=== PATIENT | female | born 1950 | race American Indian/Alaskan Native ===

== ENCOUNTER 2020-08-19 11:29 | Emergency (ER) | payer MEDICARE ==
--- NOTE | 2020-08-19 11:36 | Emergency Department Report ---
Blank Doc - Documentation Documentation: This is a 70-year-old female that was brought by her daughter for hallucinatio ns. Daughter stated has not been taking her psych medications. This initial assessment/diagnostic orders/clinical plan/treatment(s) is/are subject to change based on patient's health status, clinical progression and re- assessment by fellow clinical providers in the ED. Further treatment and workup at subsequent clinical providers discretion. Patient/guardians urged not to elope from the ED as their condition may be serious if not clinically assessed and managed. Initial orders include: 1- Patient sent to MAIN ED for further evaluation and treatment 2- iron handler was notified to have patient be brought back [facility]. 3- RN was notified to keep patient as close range and observation until room available
[2020-08-19 12:20] LABS: Basophils # (Auto) 0.1 K/mm3 (0.0-0.1); Basophils % (Auto) 0.6 % (0.0-1.8); Eosinophils # (Auto) 0.1 K/mm3 (0.0-0.4); Eosinophils % (Auto) 0.7 % (0.0-4.3); Hematocrit 38.1 % (30.3-42.9); Hemoglobin 11.8 gm/dl (10.1-14.3); Lymphocytes # (Auto) 2.1 K/mm3 (1.2-5.4); Lymphocytes % (Auto) 22.2 % (13.4-35.0); Mean Corpuscular HGB Conc 31 % (30-34); Monocytes # (Auto) 0.5 K/mm3 (0.0-0.8); Monocytes % (Auto) 4.9 % (0.0-7.3); Platelet Count 294 K/mm3 (140-440); Red Blood Count 5.48 M/mm3 (3.65-5.03); Red Cell Distribution Width 16.2 % (13.2-15.2)
[2020-08-19 12:30] LABS: Mean Corpuscular Volume 70 fl (79-97)
[2020-08-19 12:34] LABS: BUN/Creatinine Ratio 18; Blood Urea Nitrogen 18 mg/dL (7-17); Calcium 9.5 mg/dL (8.4-10.2); Hemolysis Index 10
[2020-08-20] MEDS ORDERED: INSULIN REGULAR, HUMAN 100 UNITS/1 ML ONE ×3 (02:00→02:30)
[2020-08-20] MEDS ORDERED: SODIUM CHLORIDE 0.9% 1000 ML 1,000 ML ONE (02:21)
[2020-08-20] MEDS ORDERED: INSULIN REGULAR, HUMAN 100 UNIT/ML 3ML VIAL ONE (02:23)
[2020-08-20] MEDS ORDERED: SODIUM CHLORIDE 0.9% 1000 ML IV SOLN ONE (02:30)
[2020-08-20] MEDS ORDERED: SODIUM CHLORIDE 0.9% 1000 ML 1,000 ML IV ONE (22:37)
[2020-08-20] MEDS ORDERED: INSULIN REGULAR, HUMAN 100 UNIT/ML 3ML VIAL IV ONE (22:38)
[2020-08-21] MEDS ORDERED: INSULIN REGULAR, HUMAN 100 UNITS/1 ML ONE ×4 (00:01)
[2020-08-21 11:28] LABS: Color,Urine STRAW (Yellow)
[2020-08-21 11:29] LABS: Bilirubin,Urine Negative (Negative); Blood,Urine Negative (Negative)
[2020-08-21 11:30] LABS: Mucus,Urine FEW /HPF
[2020-08-21 11:42] LABS: Urobilinogen,Urine < 0.2 mg/dL (<2.0)
[2020-08-21] MEDS ORDERED: INSULIN REGULAR, HUMAN 100 UNIT/ML 3ML VIAL SUB-Q ONE ×2 (12:18→17:03)
--- NOTE | 2020-08-21 12:35 | Consultation ---
History of Present Illness - Reason for Consult Consult date: 08/21/20 Reason for consult: hallucinations - History of Present Psychiatric Illness Shalini Florez is a 70y/o female patient who was brought in by her daughter for noncompliance with medications and hallucinations, per documentation. During my interview with the patient she is sitting on side of the bed, she appears to be praying. She is a/o x 2. She say she was brought to the hospital "because I was praying and speaking in my language." When asking the patient what was her language, she says "the Spirit of God." When asked why was she not taking her medications she replies "I don't take meds." She then says "they gave me hallucinations." The patient denies SI/HHI or hallucinations of any kind. SHe says she has a history of depression. PAST PSYCHIATRIC HISTORY: Diagnoses: Depression Suicide attempts or Self-harm behavior: Denies Prior psychiatric hospitalizations: Denies Substance Abuse history: Denies Previous psychiatric medications tried: Could not recall Outpatient treatment: "at one point" PAST MEDICAL HISTORY: None reported Family Psychiatric History: None reported or documented SOCIAL HISTORY Marital Status: Living Arrangements: with family Employment Status: Retired Education: History of Abuse: None reported Legal History: None reported REVIEW OF SYSTEMS Constitutional: Negative for weight loss ENT: Negative for stridor Respiratory: Negative for cough or hemoptysis All other systems reviewed and are negative MENTAL STATUS EXAMINATION General Appearance: Dressed appropriately Behavior: good eye contact, calm and cooperative Cooperation: Participating/engaged Psychomotor Behavior: Psychomotor normal Mood: "fine" Affect and affective range: Flat Thought Process: goal oriented Thought Content: illogical Speech: Normal rate, volume and rhythm Suicidal Ideation: denies SI Homicidal Ideation: Denies HI Hallucinations: Denies Delusions: None elicited Impulse Control: unimpaired Insight and Judgment: Limited insight and judgment Memory: Normal Attention: Normal Orientation: Alert, oriented Assessment and Plan (1) Paranoid Schizophrenia (2) Noncompliance with medical regimen and other treatment TREATMENT Scripts: Continue Invega 6mg po daily Start Trazodone 50mg po qhs Sitter: Per primary Medical: Per primary Disposition: recommend acute inpatient psychiatric treatment. Will continue to follow. Thank you for this consult. Medications and Allergies Allergies Allergy/AdvReac Type Severity Reaction Status Date / Time No Known Allergies Allergy Verified 05/18/20 22:04 Home Medications Medication Instructions Recorded Confirmed Last Taken Type Metformin HCl [metFORMIN] 1 tab PO DAILY 05/19/20 08/20/20 Unknown History Paliperidone [Invega] 1 cap PO QAM 05/19/20 08/20/20 Unknown History Acetaminophen [Acetaminophen TAB] 650 mg PO Q4H PRN tablet 05/21/20 08/20/20 Unknown Rx Lispro Insulin [HumaLOG] 0 unit SUB-Q Q6HR units 05/21/20 08/20/20 Unknown Rx metFORMIN [Glucophage] 500 mg PO BIDDIAB tablet 05/21/20 08/20/20 Unknown Rx Active Meds: Active Medications Metformin HCl (Glucophage) 1,000 mg PO BIDDIAB [facility] Mental Status Exam - Vital signs Last Vital Signs Temp 98.5 F 08/21/20 07:39 Pulse 80 08/21/20 07:39 Resp 18 08/21/20 07:39 BP 140/70 08/21/20 07:39 Pulse Ox 100 08/21/20 07:39 Results Result Diagrams: 08/19/20 11:49 08/19/20 11:49 Abnormal lab results 08/20/20 08/20/20 08/20/20 Range/Units 02:43 04:12 22:52 POC Glucose 478 H 220 H 448 H (70-105) mg/dL 08/21/20 08/21/20 08/21/20 Range/Units 00:59 10:09 12:17 POC Glucose 202 H 439 H 454 H (70-105) mg/dL All other labs normal.
[2020-08-21] MEDS ORDERED: ZIPRASIDONE MESYLATE 20 MG VIAL IM PRN (13:37)
[2020-08-21] MEDS: metFORMIN 500 MG TAB PO SCH (17:12)
[2020-08-21] MEDS ORDERED: INSULIN REGULAR, HUMAN 100 UNIT/ML 3ML VIAL IV ONE (21:48)
[2020-08-21] MEDS ORDERED: traZODone 50 MG TAB PO SCH (22:00)
[2020-08-22] MEDS: metFORMIN 500 MG TAB PO SCH ×2 (07:33→16:41)
--- NOTE | 2020-08-22 09:24 | Progress Note ---
Subjective - Reason for Consult Consult date: 08/22/20 Reason for consult: psychosis - Chief Complaint Chief complaint: During my interview with the patient, she lying down staring at the ceiling. She is a/o x 2. She denies hallucinations, despite hearing her talk out loud as I am entering the room. When asking the patient who was she talking to, she replied "the Spirit of the Lord." The patient made no eye contact at all. She denies SI/HI. She describes her mood as "well." REVIEW OF SYSTEMS Constitutional: Negative for weight loss ENT: Negative for stridor Respiratory: Negative for cough or hemoptysis All other systems reviewed and are negative MENTAL STATUS EXAMINATION General Appearance: Dressed appropriately Behavior: poor eye contact, calm and cooperative Cooperation: Participating/engaged Psychomotor Behavior: Psychomotor normal Mood: "well" Affect and affective range: Flat Thought Process: goal oriented Thought Content: illogical Speech: Normal rate, volume and rhythm Suicidal Ideation: denies SI Homicidal Ideation: Denies HI Hallucinations: Denies, but heard talking out lout Delusions: None elicited Impulse Control: Limited Insight and Judgment: Limited insight and judgment Memory/Cognition: Limited Orientation: Alert, oriented Assessment and Plan (1) Paranoid Schizophrenia (2) Noncompliance with medical regimen and other treatment TREATMENT Scripts: Start Klonopin 0.5mg po daily Sitter: Per primary Medical: Per primary Disposition: recommend acute inpatient psychiatric treatment. Will continue to follow. Thank you for this consult. Mental Status Exam - Vital signs Last Vital Signs Temp 98.0 F 08/22/20 08:15 Pulse 67 08/22/20 08:15 Resp 18 08/22/20 08:15 BP 121/56 08/22/20 08:15 Pulse Ox 100 08/22/20 08:15
[2020-08-22] MEDS ORDERED: PALIPERIDONE PO SCH (10:00)
[2020-08-22] MEDS ORDERED: PALIPERIDONE ER 3 MG TAB PO SCH (10:00)
[2020-08-22] MEDS ORDERED: clonazePAM 0.5 MG TAB PO SCH (10:00)
[2020-08-22 12:31] LABS: Amphetamine Screen,Urine PRESUMPTIVE NEGATIVE; Benzodiazepines Screen,Urine PRESUMPTIVE NEGATIVE; Cannabinoid Screen,Urine PRESUMPTIVE NEGATIVE; Cocaine Screen,Urine PRESUMPTIVE NEGATIVE; Methadone Screen,Urine PRESUMPTIVE NEGATIVE; Opiate Screen,Urine PRESUMPTIVE NEGATIVE
[2020-08-22 12:35] LABS: BUN/Creatinine Ratio 16; Blood Urea Nitrogen 16 mg/dL (7-17)
[2020-08-22 12:36] LABS: Calcium 9.7 mg/dL (8.4-10.2)
[2020-08-22] MEDS ORDERED: INSULIN REGULAR, HUMAN 100 UNIT/ML 3ML VIAL IV ONE ×2 (14:36→16:07)
[2020-08-22 15:21] VITALS: BP 120/61
[2020-08-22] MEDS ORDERED: SODIUM CHLORIDE 0.9% 1000 ML 1,000 ML IV ONE (16:07)
[2020-08-22] MEDS ORDERED: INSULIN REGULAR, HUMAN 100 UNITS/1 ML ONE (16:17)
[2020-08-22 17:47] LABS: Calcium 8.9 mg/dL (8.4-10.2)
--- NOTE | 2020-08-22 17:59 | Emergency Department Report ---
Blank Doc - Documentation Documentation: Patient in the ED with several days awaiting placement to psychiatric facility. Patient did have several episodes of hypoglycemia in the ED that responded to insulin boluses. She does not have signs of DKA. Patient is medically cleared brownish provided and repeat labs reveal improved glucose with stable electrolytes. Patient be discharged so that she may be admitted to [facility] psych
== END 2020-08-22 18:25 ==
LOC: ED 11:29
DX: F20.0 Paranoid schizophrenia (principal); Z20.828 Contact with and (suspected) exposure to other viral communicable diseases
CPT/HCPCS: 36415; 80048; 80307; 81001; 82962; 85025; 96361; 96374; 96376; 99284; J7030; U0003; 80320; 96372; G0480; J1815

== ENCOUNTER 2021-04-28 09:25 | Emergency (ER) | payer MEDICARE ==
[2021-04-28] MEDS ORDERED: SODIUM CHLORIDE 0.9% 1000 ML 1,000 ML IV ONE (11:32)
--- NOTE | 2021-04-28 11:37 | Emergency Department Report ---
HPI - General Chief Complaint: Hyperglycemia Time Seen by Provider: 04/28/21 11:25 - HPI HPI: Room 23 The patient is a 70-year-old female present with a chief complaint of hyperglycemia. The patient states she came to the emergency department because this morning she noticed that her blood sugar was elevated at 491. The patient states that when she awakened this morning she felt like her normal self however when she got out of bed she began to feel dizzy which prompted her to sit back down. Patient states the dizziness lasted for 5 minutes and then resolved. The patient decided to check her blood sugar and this when she was found to be hypo glycemic. Patient states she has been compliant with her diabetes medication. Patient denies nausea/vomiting, fever or any preceding trauma. Patient admits to urinary frequency which began today. When asked how she is feeling currently the patient replies "I feel good." ED Past Medical Hx - Past Medical History Previous Medical History?: Yes Hx Hypertension: Yes Hx Diabetes: Yes Hx Psychiatric Treatment: Yes (depression, states she takes Invega) - Surgical History Additional Surgical History: Bilateral tubal ligation - Family History Family history: no significant - Social History Smoking Status: Never Smoker Substance Use Type: None (Denies illicit drug use) - Medications Home Medications: Home Medications Medication Instructions Recorded Confirmed Last Taken Type Paliperidone [Invega] 1 cap PO QAM 05/19/20 08/22/20 Unknown History Acetaminophen [Acetaminophen TAB] 650 mg PO Q4H PRN tablet 05/21/20 08/22/20 Unknown Rx Lispro Insulin [HumaLOG] 0 unit SUB-Q Q6HR units 05/21/20 08/22/20 Unknown Rx metFORMIN [Glucophage] 500 mg PO BIDDIAB tablet 05/21/20 08/22/20 Unknown Rx Paliperidone [Invega] 6 mg PO QDAY #30 tablet 08/29/20 Unknown Rx ED Review of Systems ROS: Stated complaint: FELL, DIZZY ,SUGAR HIGH Other details as noted in HPI Constitutional: denies: fever Eyes: denies: eye pain ENT: denies: throat pain Respiratory: no symptoms reported Cardiovascular: denies: chest pain Endocrine: no symptoms reported Gastrointestinal: denies: nausea, vomiting Genitourinary: frequency Musculoskeletal: denies: back pain Neurological: other (Dizziness). denies: headache Physical Exam - Physical Exam Vital Signs: Vital Signs 04/28/21 10:00 Temperature 98.3 F Pulse Rate 111 H Respiratory 18 Rate Blood Pressure 157/67 [Right] O2 Sat by Pulse 99 Oximetry Physical Exam: GENERAL: The patient is well-developed well-nourished female lying on stretcher not appearing to be in acute distress. [] HEENT: Normocephalic. Atraumatic. Extraocular motions are intact. Patient has moist mucous membranes. NECK: Supple. Trachea midline CHEST/LUNGS: Clear to auscultation. There is no respiratory distress noted. HEART/CARDIOVASCULAR: Regular. There is tachycardia. There is no gallop rub or murmur. ABDOMEN: Abdomen is soft, nontender. Patient has normal bowel sounds. There is no abdominal distention. SKIN: There is no rash. There is no edema. There is no diaphoresis. NEURO: The patient is awake, alert, and oriented. The patient is cooperative. The patient has no focal neurologic deficits. The patient has normal speech. Cranial nerves II through XII grossly intact. GCS 15 MUSCULOSKELETAL:There is no evidence of acute injury. ED Course Vital Signs 04/28/21 10:00 Temperature 98.3 F Pulse Rate 111 H Respiratory 18 Rate Blood Pressure 157/67 [Right] O2 Sat by Pulse 99 Oximetry ED Medical Decision Making - Lab Data Result diagrams: 04/28/21 11:23 04/28/21 11:23 Laboratory Tests 04/28/21 04/28/21 04/28/21 09:59 11:23 11:23 WBC 11.0 RBC 5.23 H Hgb 11.1 Hct 35.7 MCV 68 L MCH 21 L MCHC 31 RDW 16.4 H Plt Count 249 Lymph % (Auto) 16.2 [place] % (Auto) 5.2 Eos % (Auto) 0.1 Baso % (Auto) 0.4 Lymph # (Auto) 1.8 [place] # (Auto) 0.6 Eos # (Auto) 0.0 Baso # (Auto) 0.0 Seg Neutrophils % 78.1 H Seg Neutrophils # 8.6 H VBG pH Sodium 133 L Potassium 4.5 Chloride 92.2 L Carbon Dioxide 27 Anion Gap 18 BUN 17 Creatinine 0.9 Estimated GFR > 60 BUN/Creatinine Ratio 19 Glucose 404 H POC Glucose 491 H Calcium 10.0 Magnesium 1.50 L Total Bilirubin 0.20 AST 11 ALT 5 L Alkaline Phosphatase 107 Total Creatine Kinase 108 Troponin T Total Protein 7.3 Albumin 4.5 Albumin/Globulin Ratio 1.6 Urine Color Urine Turbidity Urine pH Ur Specific [place] Urine Protein Urine Glucose (UA) Urine Ketones Urine Blood Urine Nitrite Urine Bilirubin Urine Urobilinogen Ur Leukocyte Esterase Urine WBC (Auto) Urine RBC (Auto) Urine Bacteria (Auto) 04/28/21 04/28/21 04/28/21 11:23 11:23 12:59 WBC RBC Hgb Hct MCV MCH MCHC RDW Plt Count Lymph % (Auto) [place] % (Auto) Eos % (Auto) Baso % (Auto) Lymph # (Auto) [place] # (Auto) Eos # (Auto) Baso # (Auto) Seg Neutrophils % Seg Neutrophils # VBG pH 7.422 H Sodium Potassium Chloride Carbon Dioxide Anion Gap BUN Creatinine Estimated GFR BUN/Creatinine Ratio Glucose POC Glucose Calcium Magnesium Total Bilirubin AST ALT Alkaline Phosphatase Total Creatine Kinase Troponin T < 0.010 Total Protein Albumin Albumin/Globulin Ratio Urine Color Colorless Urine Turbidity Clear Urine pH 5.0 Ur Specific [place] 1.000 L Urine Protein <15 mg/dl Urine Glucose (UA) >=500 Urine Ketones Neg Urine Blood Mod Urine Nitrite Neg Urine Bilirubin Neg Urine Urobilinogen < 2.0 Ur Leukocyte Esterase Neg Urine WBC (Auto) < 1.0 Urine RBC (Auto) < 1.0 Urine Bacteria (Auto) 1+ 04/28/21 13:05 WBC RBC Hgb Hct MCV MCH MCHC RDW Plt Count Lymph % (Auto) [place] % (Auto) Eos % (Auto) Baso % (Auto) Lymph # (Auto) [place] # (Auto) Eos # (Auto) Baso # (Auto) Seg Neutrophils % Seg Neutrophils # VBG pH Sodium Potassium Chloride Carbon Dioxide Anion Gap BUN Creatinine Estimated GFR BUN/Creatinine Ratio Glucose POC Glucose 335 H Calcium Magnesium Total Bilirubin AST ALT Alkaline Phosphatase Total Creatine Kinase Troponin T Total Protein Albumin Albumin/Globulin Ratio Urine Color Urine Turbidity Urine pH Ur Specific [place] Urine Protein Urine Glucose (UA) Urine Ketones Urine Blood Urine Nitrite Urine Bilirubin Urine Urobilinogen Ur Leukocyte Esterase Urine WBC (Auto) Urine RBC (Auto) Urine Bacteria (Auto) - EKG Data -: EKG Interpreted by Me EKG shows normal: sinus rhythm Rate: normal - EKG Data When compared to previous EKG there are: previous EKG unavailable Interpretation: other (No ischemic changes seen) - Differential Diagnosis Dehydration, DKA, hyperglycemia, hyperthyroidism Critical care attestation.: If time is entered above; I have spent that time in minutes in the direct care of this critically ill patient, excluding procedure time. ED Disposition Clinical Impression: Hyperglycemia, Hypomagnesemia Disposition: TO HOME OR SELFCARE Is pt being admited?: No Does the pt Need Aspirin: No Condition: Stable Instructions: Hyperglycemia, [id number] Additional Instructions: Return to the emergency department should you develop worsening symptoms, inability to tolerate food or liquids, high fever or any other concerns Time of Disposition: 14:39
[2021-04-28 11:40] LABS: Basophils % (Auto) 0.4 % (0.0-1.8); Eosinophils % (Auto) 0.1 % (0.0-4.3); Hematocrit 35.7 % (30.3-42.9); Hemoglobin 11.1 gm/dl (10.1-14.3); Lymphocytes # (Auto) 1.8 K/mm3 (1.2-5.4); Lymphocytes % (Auto) 16.2 % (13.4-35.0); Mean Corpuscular HGB Conc 31 % (30-34); Monocytes # (Auto) 0.6 K/mm3 (0.0-0.8); Monocytes % (Auto) 5.2 % (0.0-7.3); Platelet Count 249 K/mm3 (140-440); Red Blood Count 5.23 M/mm3 (3.65-5.03); Red Cell Distribution Width 16.4 % (13.2-15.2)
[2021-04-28 12:00] LABS: Mean Corpuscular Volume 68 fl (79-97)
[2021-04-28 12:03] LABS: Alanine Aminotransferase 5 units/L (7-56); Albumin 4.5 g/dL (3.9-5); BUN/Creatinine Ratio 19; Blood Urea Nitrogen 17 mg/dL (7-17); Hemolysis Index 2
[2021-04-28] MEDS ORDERED: INSULIN REGULAR, HUMAN 100 UNITS/1 ML IV ONE (13:06)
[2021-04-28 13:18] LABS: Bacteria,Urine 1+ /HPF (Negative); Bilirubin,Urine NEG (Negative); Blood,Urine MOD (Negative); Color,Urine Colorless (Yellow); Protein,Urine <15 mg/dL mg/dL (Negative); Urobilinogen,Urine < 2.0 mg/dL (<2.0); WBC,Urine < 1.0 /HPF (0.0-6.0)
[2021-04-28 13:19] LABS: RBC,Urine < 1.0 /HPF (0.0-6.0)
[2021-04-28] MEDS ORDERED: MAGNESIUM SULFATE 2 GM/50 ML BAG IV ONE (13:23)
[2021-04-28 16:03] VITALS: BP 110/56
--- NOTE | 2021-04-30 17:47 | Electrocardiograph Report ---
[facility] Test Date: 2021-04-28 Test Time: 12:27:32 Pat Name: NICK PLASCENCIA Department: Room: Gender: F Registered Land Surveyor: NURSE : 1950 Requested By: KRISTI RODRIGUEZ Order Number: [id number] Reading MD: Erika Jacob Measurements Intervals [place] Rate: 97 P: 50 MI: 146 QRS: -26 QRSD: 90 T: 44 QT: 375 QTc: 478 Interpretive Statements Sinus rhythm Left ventricular hypertrophy No previous ECG available for comparison Electronically Signed On 04-30-2021 17:46:49 EDT by Erika Jacob
== END 2021-04-28 16:04 | disposition home or self-care (01) ==
LOC: ED 09:25
DX: E11.65 Type 2 diabetes mellitus with hyperglycemia (principal); E83.42 Hypomagnesemia; I10 Essential (primary) hypertension; F32.9 Major depressive disorder, single episode, unspecified; Z98.51 Tubal ligation status; Z79.899 Other long term (current) drug therapy
CPT/HCPCS: 36415; 80053; 81001; 82550; 82805; 82962; 83735; 84484; 85025; 93005; 96361; 96365; 96375; 99284; J3475; J7030; J1815